=== PATIENT | male | born 1960 | race Caucasian/White ===

== ENCOUNTER → 2016-07-10 | Outpatient (REF) ==
--- NOTE | 2016-07-10 09:49 | DI ---
EXAM: Two views of the chest. History: Annual screening chest radiograph Comparison: Chest radiograph 08/24/2014 Findings: Heart size is normal. No focal consolidation. No appreciable pleural fluid and no pneum othorax. No acute osseous abnormalities. Two screws are again seen within the left scapula. Impression: No acute cardiopulmonary process. No change compared to the prior study.
== END ==
LOC: RAD 09:19
DX: Z02.89 Encounter for other administrative examinations (principal)

== ENCOUNTER 2017-11-19 09:00 | Outpatient (RCR) ==
--- NOTE | 2017-11-18 15:07 | RS.OPPTEV2 ---
Date of Note: 11/18/17 Visit #: 1 Date of Evaluation: 11/18/17 Payer Source: Insurance Treatment Diagnosis: Neck pain, Left UE radiating symptoms History of Condition/Mechanism of Injury:: Patient reports neck pain and left UE symptoms for approximately 4 weeks. Reports no specific injury or etiology. Prior Level of Function.....Patient was independent with: ADL's, Self Care, Work /Vocation, Caregiving, Ambulation/Mobility, Community Integration/Access Current Subjective/complaints:: Mr. Ruffin reports having symptoms of left neck and shoulder pain, with left UE tingling into the hand. States tingling goes into the 4th and 5th digits of the left hand. States he has also noticed less strength on the left UE. Reports having difficulty pulling his phone out of his pocket with the left hand. 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 States he is taking an anti- inflammatory and muscle relaxant, which have helped. States he has also used heat and ice. Heat seems to be relaxing and decreases his symptoms. Also states when he is hurting, he can get in his pool, and before long his symptoms are gone. Reports muscle tension and stress seems to make his symptoms worse. Reports an occasional headache. Medical History Medical History: Unremarkable Surgical History Comments:: Left shoulder traumatic dislocation and surgery seven years ago. Smoking Status: Never smoker Hx Home Medications: anti-inflammatory and muscle relaxant Patient's Goals: His goal is to get relief of Left sided pain and radicular symptoms. Pain Assessment - Pain Description Pain Location: left scapula and shoulder Current Pain Intensity: 3/10 Worst Pain Intensity: not quantified Functional Outcome Measure Neck Disability Index: 26 - G Codes & Severity Modifier G Codes & Modifier: Na Source of G Code score: NA Observation - Observation Posture: Forward Head, Rounded Shoulders, Scapula Asymmetry (right scapula higher than left), Increased Thoracic Kyphosis Handedness: Right - ROM Comments: Demonstrates full cervical AROM. Reports onset of tingling into the left UE with cervical extension. - Strength Cervical Extension: 5 Normal Cervical Flexion: 5 Normal Cervical Lateral Flexion: 5 Normal Comments: UE AROM is 5/5 throughout bilateral UE's. - Special Tests Thoracic Outlet Test: Negative Left, Negative Right Car Worker Strength Left Hand Car Worker Strength: 75 lbs. Right Hand Car Worker Strength: 135 lbs. Dynamometer Testing Position: 2nd Position Palpation Palpation Findings: Muscle Guarding Comments:: Moderate muscle tension in left upper traps. Right upper traps with minimal increase in muscle tone. Reports no tenderness upon palpation throughout the periscapular muscles, paraspinals, or suboccipital musculature. Sensation - Sensation Comments: Sensation intact to light touch and deep pressure throughout bilateral UE's. - Heat/Cryotherapy Treatment: Hot Pack (X 10 mins to cervical spine in supine, prior to cervical traction) - Traction Treatment Method: Mechanical, Intermittent, Cervical Patient Position: Supine Amount of Force Applied: 15 lbs. Hold Time: 35 sec Rest Time: 5 sec Duration of treatment: 10 mins Interventions - Exercise/Activities/Manual Therapy Exercises/Activities: Patient instructed in pec stretch (corner stretch) and cervical retraction. Manual Therapy: Na HOME EXERCISE PROGRAM: pec stretch (corner stretch) and cervical retraction. - Charges Timed Code Treatment Minutes: 10 mins (traction) Total Treatment Time: 45 mins Procedures billed for this date of service:: EVAL Low, mechanical traction EVALUATION COMPLEXITY LEVEL EVALUATION COMPLEXITY LEVEL: HISTORY: Low, EXAM OF BODY SYSTEMS: Low, CLINICAL PRESENTATION: Low, CLINICAL DECISION MAKING: Low Assessment Assessment: Patient presents to therapy with a diagnosis of Cervicalgia. He reports left shoulder pain, radiating symtpoms into the left UE and occasional headaches. He presents with a forward head posture, rounded shoulders, and thoracic kyphosis. He exihibits left hand freight car repairer of 75 lbs, compared to freight car repairer of 135 lbs. on the dominant hand. He also exhibits moderate muscle tone in the left upper traps. He presents to have good potential to benefit from postural exercises and cervical traction to resolve his symtpoms. Patient Education: Education of diagnosis, Body/Joint mechanics, Home Exercise Program, Activity Modification, Education of Plan of Care Rehab Potential: Good Short Term Goals Goal #1: Pt independent and compliant in HEP. Goal to be met by: 12/02/17 Goal #2: Left UE symptoms decreased to occasional. Goal to be met by: 12/02/17 Goal #3: Muscle tone of left upper traps decreased to minimal. Goal to be met by: 12/02/17 Flash Oven Operator Goals Goal #1: Pt knows HEP and to continue ex's to maintain functional level at D/C. 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 Goal to be met by: 12/28/17 Goal #3: Pt will report no deficit with left freight car repairer strength. Goal to be met by: 12/28/17 Goal #4: Pt to demonstrate good postural awareness. Goal to be met by: 12/28/17 Plan - Treatment to be Provided Procedures: Therapeutic Exercises, Therapeutic Activity, Manual Therapy, Patient Education Modalities: Ultrasound/Phonophoresis, Cryotherapy, Hot Packs, Mechanical Traction (cervical) - Treatment Plan Frequency: 3 X week Duration: 6 weeks ORDER # VISITS AND/OR THROUGH DATE: 12/28/17 - Treatment Code (1) Cervical radiculopathy Code(s): M54.12 - RADICULOPATHY, CERVICAL REGION Comments: M54.12 (2) Decreased freight car repairer strength of left hand Code(s): M62.81 - MUSCLE WEAKNESS (GENERALIZED) Comments: M62.81
--- NOTE | 2017-11-19 10:14 | RS.OPPTDN ---
Subjective Date of Note: 11/19/17 Visit #: 2 Date of Evaluation: 11/18/17 Payer Source: Insurance Treatment Diagnosis: Neck pain, Left UE radiating symptoms Current Subjective/complaints:: Reports minimal tingling and pain at this time , but the pain is present with immediately sitting up in the morning. Pain Assessment - Pain Description Pain Location: cervical/L UE Pain Description: Radiating, Aching Pain Description: minimal Other Comments regarding Pain:: pain varies ,dependent upon position of the neck or L UE - Heat/Cryotherapy Treatment: Hot Pack (20 mins. prior to ex . and traction) - Traction Treatment Method: Mechanical, Intermittent, Cervical Patient Position: Supine Amount of Force Applied: 16# Hold Time: 30 secs. Rest Time: 5 secs. Duration of treatment: 15 mins. Traction Treatment Comment: Tolerates well. Interventions - Exercise/Activities/Manual Therapy Exercises/Activities: 15 mins. total of standing corner stretch and cervical retraction ,modified to supine position for chin tucks/retraction and resting with both UE's /shoulders at 90 degrees abduction (cross or "T" position ). Total minutes of Exercise: 15 Manual Therapy: Na Total minutes of Manual Therapy: 0 HOME EXERCISE PROGRAM: pec stretch (corner stretch) and cervical retraction. - Charges Timed Code Treatment Minutes: 30 Total Treatment Time: 50 Procedures billed for this date of service:: hp,ex ,traction Assessment: Patient reports increaed radiating pain in the L UE with standing exercises,but less pain when placed in supine for stretches.He has good demo of exercises in standing or supine ,but recommended supine becauseof less compression of the C-spine.He tolerates traction well today. Patient Education: Education of diagnosis, Body/Joint mechanics, Home Exercise Program, Home Safety, Activity Modification, Education of Plan of Care Short Term Goals Goal #1: Pt independent and compliant in HEP. Goal to be met by: 12/02/17 Progress towards Goal:: Progressing Goal #2: Left UE symptoms decreased to occasional. Goal to be met by: 12/02/17 Goal #3: Muscle tone of left upper traps decreased to minimal. Goal to be met by: 12/02/17 Industry Analyst Goals Goal #1: Pt knows HEP and to continue ex's to maintain functional level at D/C. 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 Goal to be met by: 12/28/17 Goal #3: Pt will report no deficit with left brusher and shearer strength. Goal to be met by: 12/28/17 Goal #4: Pt to demonstrate good postural awareness. Goal to be met by: 12/28/17 Progress towards goal: Progressing Plan PLAN OF CARE EXPIRES ON:: 12/28/17 ORDER # VISITS AND/OR THROUGH DATE: 12/28/17 PLAN: Continue PT to eliminate cervical pain ,improve L UE /brusher and shearer strength .
--- NOTE | 2017-11-21 10:04 | RS.CXNS ---
Date of scheduled appointment: 11/21/17 Type: No Show Reason for Cancel/NS: Unknown
== END 2017-11-25 23:59 ==
PROVIDERS: ATTEND Orthopaedic Surgery Orthopaedic Surgery of the Spine
DX: M54.2 Cervicalgia (principal); M54.12 Radiculopathy, cervical region; M62.81 Muscle weakness (generalized)

== ENCOUNTER 2017-12-18 08:00 | Outpatient (RCR) ==
--- NOTE | 2017-12-08 09:03 | RS.OPPTDN ---
Subjective Date of Note: 12/08/17 Visit #: 3 Date of Evaluation: 11/18/17 Payer Source: Insurance Treatment Diagnosis: Neck pain, Left UE radiating symptoms Current Subjective/complaints:: Patient reports his pain has made it very difficult to drive ,gets some relief when resting on his back.He also has radiating pain into the UE's. Pain Assessment - Pain Description Pain Description: Radiating, Dull, Aching, Chronic Current Pain Intensity: 7/10 - Heat/Cryotherapy Treatment: Hot Pack (20 mins. prior to traction ) - Traction Treatment Method: Mechanical, Intermittent, Cervical Patient Position: Supine Amount of Force Applied: 15-16 # Hold Time: 30 secs. Rest Time: 5 secs. Duration of treatment: 15 mins. Traction Treatment Comment: Tolerates well. Interventions - Exercise/Activities/Manual Therapy Exercises/Activities: HEP review while on traction ,he is doing them at home without difficulty in supine.He reports increased pain if standing and attempting stretches. Total minutes of Exercise: 0 Manual Therapy: Na Total minutes of Manual Therapy: 0 HOME EXERCISE PROGRAM: pec stretch (corner stretch) and cervical retraction. GIVEN HOME TRACTION UNIT FOR TRIAL PERIOD .INSERVICE DONE FOR PROPER USE. - Charges Timed Code Treatment Minutes: 25 Total Treatment Time: 45 Procedures billed for this date of service:: hp,traction ,ther. act. Assessment: Patient reports relief from traction .He is motivated to improve , is comliant to HEP ,uses ice and heat for relief.He is very guarded today with cervical motion,presents with forwrd head posture. Patient Education: Education of diagnosis, Body/Joint mechanics, Home Exercise Program, Home Safety, Activity Modification, Education of Plan of Care Patient demonstrates compliance with HEP?: Yes Short Term Goals Goal #1: Pt independent and compliant in HEP. Goal to be met by: 12/02/17 Progress towards Goal:: Progressing Goal #2: Left UE symptoms decreased to occasional. Goal to be met by: 12/02/17 Goal #3: Muscle tone of left upper traps decreased to minimal. Goal to be met by: 12/02/17 Fruit Or Nut Farmworker Goals Goal #1: Pt knows HEP and to continue ex's to maintain functional level at D/C. 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 Goal to be met by: 12/28/17 Progress towards goal: No Change Goal #3: Pt will report no deficit with left latin teacher strength. Goal to be met by: 12/28/17 Goal #4: Pt to demonstrate good postural awareness. Goal to be met by: 12/28/17 Progress towards goal: Progressing Plan PLAN OF CARE EXPIRES ON:: 12/28/17 ORDER # VISITS AND/OR THROUGH DATE: 12/28/17 PLAN: Continue PT to reduce/eliminate cervical pain and radiculopathy.
--- NOTE | 2017-12-11 10:13 | RS.OPPTDN ---
Subjective Date of Note: 12/11/17 Visit #: 4 Date of Evaluation: 11/18/17 Payer Source: Insurance Treatment Diagnosis: Neck pain, Left UE radiating symptoms Current Subjective/complaints:: Patient reports using home traction unit daily , feels it is helping. Pain Assessment - Pain Description Pain Location: cervical Pain Description: Radiating, Dull, Aching Pain Description: still has numbness ni the UE's when driving Current Pain Intensity: not rated Worst Pain Intensity: 4-5 [address] to clinic Other Comments regarding Pain:: lessens as the day progresses during activities ,elevates at night when resting - Heat/Cryotherapy Treatment: Hot Pack (20 mins. prior to traction) - Traction Treatment Method: Mechanical, Intermittent, Cervical Patient Position: Supine Amount of Force Applied: 16-17# Hold Time: 30 secs. Rest Time: 5 secs. Duration of treatment: 20 mins. Traction Treatment Comment: Tolerates well. Interventions - Exercise/Activities/Manual Therapy Exercises/Activities: HEP review while on traction ,he is doing them at home without difficulty in supine. Total minutes of Exercise: 0 Manual Therapy: Na Total minutes of Manual Therapy: 0 HOME EXERCISE PROGRAM: pec stretch (corner stretch) and cervical retraction. GIVEN HOME TRACTION UNIT FOR TRIAL PERIOD .INSERVICE DONE FOR PROPER USE. - Charges Timed Code Treatment Minutes: 20 Total Treatment Time: 40 Procedures billed for this date of service:: hp,traction Assessment: Patient feels the traction is helping ,is using the home unit daily, reports less intensity and less duration of cervical pain.He is doing the HEP as recommended also. Patient Education: Body/Joint mechanics, Home Exercise Program, Education of Plan of Care Patient demonstrates compliance with HEP?: Yes Short Term Goals Goal #1: Pt independent and compliant in HEP. Goal to be met by: 12/02/17 Progress towards Goal:: Partially Met Goal #2: Left UE symptoms decreased to occasional. Goal to be met by: 12/02/17 Progress towards Goal:: Progressing Goal #3: Muscle tone of left upper traps decreased to minimal. Goal to be met by: 12/02/17 Progress towards Goal:: Progressing Office Support Goals Goal #1: Pt knows HEP and to continue ex's to maintain functional level at D/C. 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 Goal to be met by: 12/28/17 Progress towards goal: No Change Goal #3: Pt will report no deficit with left factory focus technician strength. Goal to be met by: 12/28/17 Goal #4: Pt to demonstrate good postural awareness. Goal to be met by: 12/28/17 Progress towards goal: Progressing Plan PLAN OF CARE EXPIRES ON:: 12/28/17 ORDER # VISITS AND/OR THROUGH DATE: 12/28/17 PLAN: Continue PT to eliminate /reduce cevical pain .
--- NOTE | 2017-12-12 13:19 | RS.OPPTDN ---
Subjective Date of Note: 12/12/17 Visit #: 5 Date of Evaluation: 11/18/17 Payer Source: Insurance Treatment Diagnosis: Neck pain, Left UE radiating symptoms Current Subjective/complaints:: Patient driving still seems to cause the most pain,gets numbness and tingling in the L arm. Pain Assessment - Pain Description Pain Location: neck and L UE Pain Description: Radiating, Dull, Aching Pain Description: radiates into the L arm/hand ,increases with driving position - Heat/Cryotherapy Treatment: Hot Pack (20 mins. prior to traction) - Traction Treatment Method: Mechanical, Intermittent, Cervical Patient Position: Supine Amount of Force Applied: 17 - 18# Hold Time: 30 secs. Rest Time: 5 secs. Duration of treatment: 20 mins. Traction Treatment Comment: Tolerates well Interventions - Exercise/Activities/Manual Therapy Exercises/Activities: 20 mins. total ,including corner stretches,cervical retraction with resistance,postural awareness education. Total minutes of Exercise: 20 Manual Therapy: Na Total minutes of Manual Therapy: 0 HOME EXERCISE PROGRAM: pec stretch (corner stretch) and cervical retraction. GIVEN HOME TRACTION UNIT FOR TRIAL PERIOD .INSERVICE DONE FOR PROPER USE. - Charges Timed Code Treatment Minutes: 40 Total Treatment Time: 60 Procedures billed for this date of service:: hp,traction,ther. act. Assessment: Patient reports temporary relief from traction ,also feels better with activity ,but the L UE radiculopathy is still present with driving or when first waking up in the mornng. Patient Education: Education of diagnosis, Body/Joint mechanics, Home Exercise Program, Home Safety, Activity Modification, Education of Plan of Care Patient demonstrates compliance with HEP?: Yes Short Term Goals Goal #1: Pt independent and compliant in HEP. Goal to be met by: 12/02/17 Progress towards Goal:: Partially Met Goal #2: Left UE symptoms decreased to occasional. Goal to be met by: 12/02/17 Progress towards Goal:: No Change Goal #3: Muscle tone of left upper traps decreased to minimal. Goal to be met by: 12/02/17 Progress towards Goal:: Progressing Corporate Risk Analyst Goals Goal #1: Pt knows HEP and to continue ex's to maintain functional level at D/C. 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 Goal to be met by: 12/28/17 Progress towards goal: No Change Goal #3: Pt will report no deficit with left equipment cleaner strength. Goal to be met by: 12/28/17 (65# on L,125# on R) Progress towards goal: No Change Goal #4: Pt to demonstrate good postural awareness. Goal to be met by: 12/28/17 Progress towards goal: Progressing Plan PLAN OF CARE EXPIRES ON:: 12/28/17 ORDER # VISITS AND/OR THROUGH DATE: 12/28/17 PLAN: Continue PT to reduce/eliminate cervical and L UE pain.
--- NOTE | 2017-12-16 08:48 | RS.OPPTDN ---
Subjective Date of Note: 12/16/17 Visit #: 6 Date of Evaluation: 11/18/17 Payer Source: Insurance Treatment Diagnosis: Neck pain, Left UE radiating symptoms Current Subjective/complaints:: Patient reports less neck pain this morning,but has the numbness into the L UE and L hand. Pain Assessment - Pain Description Pain Description: numbnes in the lUE and hand Current Pain Intensity: 0 at rest - Heat/Cryotherapy Treatment: Hot Pack (20 mis. prior to traction) - Traction Treatment Method: Mechanical, Intermittent, Cervical Patient Position: Supine Amount of Force Applied: 20 # Hold Time: 30 secs. Rest Time: 5 secs. Duration of treatment: 20 mins. Traction Treatment Comment: Tolerates well.Initially had minimal discomfort when traction released,but dissipated as treatment progressed. Interventions - Exercise/Activities/Manual Therapy Exercises/Activities: N/A Total minutes of Exercise: 0 Manual Therapy: Na Total minutes of Manual Therapy: 0 HOME EXERCISE PROGRAM: pec stretch (corner stretch) and cervical retraction. GIVEN HOME TRACTION UNIT FOR TRIAL PERIOD .INSERVICE DONE FOR PROPER USE. - Charges Timed Code Treatment Minutes: 20 Total Treatment Time: 40 Procedures billed for this date of service:: hp,traction Assessment: Patient has less intense pain today,also reports the pain intemsity when driving is slightly better the past couple of days.He has improved postural awareness,good understanding of HEP. Patient Education: Education of diagnosis, Body/Joint mechanics, Home Exercise Program, Home Safety, Activity Modification, Education of Plan of Care Patient demonstrates compliance with HEP?: Yes Short Term Goals Goal #1: Pt independent and compliant in HEP. Goal to be met by: 12/02/17 Progress towards Goal:: Met Goal #2: Left UE symptoms decreased to occasional. Goal to be met by: 12/02/17 Progress towards Goal:: Progressing Goal #3: Muscle tone of left upper traps decreased to minimal. Goal to be met by: 12/02/17 Progress towards Goal:: Progressing Quality Systems Technician Goals Goal #1: Pt knows HEP and to continue ex's to maintain functional level at D/C. 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 Goal to be met by: 12/28/17 Progress towards goal: Progressing Goal #3: Pt will report no deficit with left oncology rep strength. Goal to be met by: 12/28/17 (65# on L,125# on R) Progress towards goal: No Change Goal #4: Pt to demonstrate good postural awareness. Goal to be met by: 12/28/17 Progress towards goal: Progressing Plan PLAN OF CARE EXPIRES ON:: 12/28/17 ORDER # VISITS AND/OR THROUGH DATE: 12/28/17 PLAN: Continue PT to reduce or eliminate cervical pain ,increase L oncology rep strength.
--- NOTE | 2017-12-18 09:25 | RS.OPPTDN ---
Subjective Date of Note: 12/18/17 Visit #: 7 Date of Evaluation: 11/18/17 Payer Source: Insurance Treatment Diagnosis: Neck pain, Left UE radiating symptoms Current Subjective/complaints:: Patient reports elevated pain today.He does present with increased forward head posture. Pain Assessment - Pain Description Pain Location: cervical and L UE Pain Description: Radiating, Aching, Chronic Current Pain Intensity: 6-7 - Heat/Cryotherapy Treatment: Hot Pack (20 mins. prior to traction) - Traction Treatment Method: Mechanical, Intermittent, Cervical Patient Position: Supine Amount of Force Applied: 18 # Hold Time: 30 secs. Rest Time: 5 secs. Duration of treatment: 20 mins. Interventions - Exercise/Activities/Manual Therapy Exercises/Activities: Patient does corner stretches today independently and properly before traction. Total minutes of Exercise: 0 Manual Therapy: Na Total minutes of Manual Therapy: 0 HOME EXERCISE PROGRAM: pec stretch (corner stretch) and cervical retraction. GIVEN HOME TRACTION UNIT FOR TRIAL PERIOD .INSERVICE DONE FOR PROPER USE. - Charges Timed Code Treatment Minutes: 20 Total Treatment Time: 40 Procedures billed for this date of service:: hp,traction Assessment: Patient tolerates traction well,continues to report no pain when resting on bed or immediately after traction ,but the pain returns the longer he is in upright position.He does have better posture after traction .He is motivated to improve ,plans to see a in [facility]. for evaluation. Patient demonstrates compliance with HEP?: Yes Short Term Goals Goal #1: Pt independent and compliant in HEP. Goal to be met by: 12/02/17 Progress towards Goal:: Met Goal #2: Left UE symptoms decreased to occasional. Goal to be met by: 12/02/17 (increasd today) Progress towards Goal:: Regressing Goal #3: Muscle tone of left upper traps decreased to minimal. Goal to be met by: 12/02/17 (N/A today) Shelter Goals Goal #1: Pt knows HEP and to continue ex's to maintain functional level at D/C. 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 Goal to be met by: 12/28/17 Progress towards goal: No Change Goal #3: Pt will report no deficit with left act english tutor strength. Goal to be met by: 12/28/17 (65# on L,125# on R) Progress towards goal: No Change Goal #4: Pt to demonstrate good postural awareness. Goal to be met by: 12/28/17 Progress towards goal: Progressing Plan PLAN OF CARE EXPIRES ON:: 12/28/17 ORDER # VISITS AND/OR THROUGH DATE: 12/28/17 PLAN: Continue PT to redice/eliminate cervical and L UE pain.
--- NOTE | 2017-12-22 09:00 | RS.CXNS ---
Date of scheduled appointment: 12/22/17 Type: No Show Reason for Cancel/NS: Unknown
== END 2017-12-26 23:59 ==
PROVIDERS: ATTEND Orthopaedic Surgery Orthopaedic Surgery of the Spine
DX: M54.2 Cervicalgia (principal)

== ENCOUNTER 2018-06-16 13:42 | Emergency (ER) | payer OTHER ==
[2018-06-16] MEDS ORDERED: SODIUM CHLORIDE 1,000 ML IV STA (13:53)
[2018-06-16 13:55] VITALS: BMI 25.3
--- NOTE | 2018-06-16 13:58 | ED.PDOC ---
General ED Provider: Dr. TRAVIS RAMAN Chief Complaint: Extremity Pain/Injury Stated Complaint: Crushing injury Rt Thigh. 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 States was able to get out from underthe device, which probably weighs aprox 1 ton. Drove himself to hospidal. Note to have an abrasion on the dorsal aspect of his Rt thigh of thigh with swelling. Right thigh measures 51.5cm. Left thigh 49cm Time Seen by Physician: 13:40 Mode of Arrival: Walk-In Information Source: Patient Exam Limitations: No limitations Primary Care Provider: GEE ARRINGTON Nursing and Triage Documentation Reviewed and Agree: Yes Does patient meet sepsis criteria?: No System Inflammatory Response Syndrome: Not Applicable Sepsis Protocol: For patient's 13 years and over: Temp is 96.8 and below OR 101 and greater Pulse >90 BPM Resp >20/minute Acutely Altered Mental Status Are patient's symptoms suggestive of a new infection, such as: -Pneumonia -Skin, Soft Tissue -Endocarditis -UTI -Bone, Joint Infection -Implantable Device -Acute Abdominal Infection -Wound Infection -Meningitis -Blood Stream Catheter Infection -Unknown Trauma/Injury Complaint Exam - Trauma Complaint/Exam Location of Pain or Injury: Reports: LLE Mechanism of Injury: Reports: Crush Injury Onset/Duration: 1 hr Symptoms Are: Still present Timing of Treatment: Immediate Initial Severity: Moderate Current Severity: Moderate Character: Reports: Pressure, Sharp Aggravating: Reports: Movement, Weight-bearing Alleviating: Reports: Rest, Elevation Associated Signs and Symptoms: Reports: Bruising, Swelling Related History: Denies: Similar episode Penetrating Injury Risk Factors: Reports: None Trauma Findings: Absent: Abdominal distention, Limited ROM, Uncooperative Skin Findings: Present: Abrasion, Contusion Differential Diagnoses: Abrasion, Contusions Review of Systems - Review Of Systems Constitutional: Reports: No symptoms Eyes: Reports: No symptoms Ears, Nose, Mouth, Throat: Reports: No symptoms Respiratory: Reports: No symptoms Cardiac: Reports: No symptoms GI: Reports: No symptoms : Reports: No symptoms Musculoskeletal: Reports: No symptoms Skin: Reports: No symptoms Neurological: Reports: No symptoms Endocrine: Reports: No symptoms Hematologic/Lymphatic: Reports: No symptoms All Other Systems: Reviewed and Negative Past Medical History - Past Medical History Previously Healthy: Yes Endocrine: Reports: None Cardiovascular: Reports: None Respiratory: Reports: None Hematological: Reports: None Gastrointestinal: Reports: None Genitourinary: Reports: None Neuro/Psych: Reports: None Musculoskeletal: Reports: None Cancer: Reports: None - Surgical History General Surgical History: Reports: None - Family History Family History: Reports: None - Social History Hx Substance Use: No Alcohol Screening: None - Immunizations Tetanus Shot up to Date: No (Givent today) Influenza Vaccine within 12 Months: No Pneumococcal Vaccine up to Date: No Physical Exam - Physical Exam Appearance: Well-appearing, No pain distress, Well-nourished Ill-appearing: Moderate Pain Distress: Moderate Eyes: SHAINA, EOMI, Conjunctiva clear ENT: Ears normal, Nose normal, Oropharynx normal Respiratory: Airway patent, Breath sounds clear, Breath sounds equal, Respirations nonlabored Cardiovascular: RRR, Pulses normal, No rub, No murmur GI/: Soft, Nontender, No masses, Bowel sounds normal, No Organomegaly Musculoskeletal: Normal strength, ROM intact, No edema, No calf tenderness, Limited ROM (RT thigh swelling and tenderness.abrasion dorsal thigh) Skin: Warm, Dry, Normal color Neurological: Sensation intact, Motor intact, Reflexes intact, Cranial nerves intact, Alert, Oriented Psychiatric: Affect appropriate, Mood appropriate Re-Evaluation - Re-Evaluation Time of Re-Evaluation: 17:00 Status: Improved Vital Signs Stable: Yes Appearance: NAD Lungs: Clear Skin: Warm and Dry Neuro: Alert and Oriented X3 CV: RRR Physician Notification - Case Discussed Physician Notified: Dr Kerr -ortho charge account identification clerk/option to monitor at home /patient / prefer hosp Time of Notification: 17:15 (discussed case/) Critical Care Note - Critical Care Note Total Time (mins): 30 Course - Course Hematology/Chemistry: 06/16/18 14:00 06/16/18 14:17 Orders, Labs, Meds: Lab Review 06/16/18 06/16/18 14:00 14:17 WBC 7.54 RBC 4.55 L Hgb 14.8 Hct 43.2 MCV 94.9 H MCH 32.5 H MCHC 34.3 RDW Coeff of [place] 12.6 Plt Count 203 Immature Gran % (Auto) 0.3 Neut % (Auto) 61.5 Lymph % (Auto) 29.2 [place] % (Auto) 8.2 Eos % (Auto) 0.4 Baso % (Auto) 0.4 Immature Gran # (Auto) 0.0 Neut # (Auto) 4.6 Lymph # (Auto) 2.2 [place] # (Auto) 0.6 Eos # (Auto) 0.0 Baso # (Auto) 0.0 Sodium 139.0 Potassium 4.09 Chloride 101.0 Carbon Dioxide 29.2 Anion Gap 12.89 BUN 16.5 Creatinine 0.90 Estimated GFR (MDRD) 87.00 BUN/Creatinine Ratio 18.33 Glucose 189.9 H Calcium 8.86 Total Bilirubin 0.89 AST 32.0 ALT 31.8 Alkaline Phosphatase 52.2 Total Creatine Kinase 129.4 CK-MB (CK-2) 1.400 CK-MB (CK-2) % 1.0800 Total Protein 7.28 Albumin 4.28 Globulin 3.00 Albumin/Globulin Ratio 1.42 Orders Category Date Time Status IV [ED IV/MEDIPORT/POWERPORT] .ONCE EMERGENCY 06/16/18 13:52 Active CBC W/ AUTO DIFF Stat LAB 06/16/18 14:00 Completed CMP [COMPREHENSIVE METABOLIC PANEL] Stat LAB 06/16/18 14:17 Completed CPK [CREATINE KINASE] Stat LAB 06/16/18 14:17 Completed 0.9 % Sodium Chloride [Saline Flush] MEDS 06/16/18 13:53 Active 1 syr IVF PRN PRN Diphth,Pertuss(Acell),Tet Vac [Boostrix] MEDS 06/16/18 17:21 Discontinued 0.5 ml IM .ONCE ONE Hydromorphone HCl [Dilaudid 1 mg/ml Syringe] MEDS 06/16/18 14:10 Discontinued 1 mg IVP ONCE STA Ondansetron HCl/Pf [Zofran 4 mg/2 ml] MEDS 06/16/18 14:10 Discontinued 4 mg IVP ONCE STA Sodium Chloride 0.9% [Sodium Chloride] 1,000 ml MEDS 06/16/18 13:53 Active IV 125 mls/hr CT FEMUR RIGHT WITHOUT CONTRAS Stat RADS 06/16/18 13:53 Completed Medications Generic Name Dose Route Start Last Admin Trade Name Freq PRN Reason Stop Dose Admin Sodium Chloride 1,000 mls @ 125 mls/hr 06/16/18 13:53 06/16/18 14:17 Sodium Chloride IV 06/16/18 21:52 125 mls/hr .Q8H STA Administration Sodium Chloride 1 syr 06/16/18 13:53 06/16/18 14:17 Saline Flush IVF 1 syr PRN PRN Administration To flush IV Discontinued Medications Generic Name Dose Route Start Last Admin Trade Name Ashq PRN Reason Stop Dose Admin Diphtheria/Pertussis/Tetanus Vacc 0.5 ml 06/16/18 17:21 06/16/18 17:29 Boostrix IM 06/16/18 17:22 0.5 ml .ONCE ONE Administration Hydromorphone HCl 1 mg 06/16/18 14:10 06/16/18 14:17 Dilaudid 1 Mg/Ml Syringe IVP 06/16/18 14:11 1 mg ONCE STA Administration Ondansetron HCl 4 mg 06/16/18 14:10 06/16/18 14:17 Zofran 4 Mg/2 Ml IVP 06/16/18 14:11 4 mg ONCE STA Administration Vital Signs: Temp Pulse Resp BP Pulse Ox 06/16/18 17:06 98.0 F 85 101/64 96 06/16/18 13:47 97.3 F L 90 20 144/85 H 98 Departure - Departure Time of Disposition: 17:30 Disposition: TSF SHORT-TRM HOSP Discharge Problem: Crushing injury of right thigh, initial encounter Condition: Good Pt referred to PMD for follow-up: Yes (prn) IPMP verified?: No Additional Instructions: Keep leg elevated / No wt bearing ambulation Transfer [place] for Ortho consult and monitor for compartment syndrome Discussed with patient and Allergies/Adverse Reactions: Allergies No Known Allergies Allergy (Unverified 06/16/18 13:55) Home Medications: Ambulatory Orders 1 [No Reported Medications] 06/16/18 Disposition Discussed With: Patient, Family
[2018-06-16] MEDS ORDERED: DILAUDID 1 MG/ML SYRINGE IVP STA (14:10)
[2018-06-16] MEDS ORDERED: ZOFRAN 4 MG/2 ML IVP STA (14:10)
--- NOTE | 2018-06-16 14:46 | CT ---
EXAM: CT of the right femur without contrast History: Right thigh trauma. Technique: Multiplanar CT images through the right femur were obtained without the administration of IV contrast. Findings: No bladder wall thickening. Prostate is not enlarged. No pelvic fluid. No perirectal in flammation. No acute fracture or dislocation. There is subcutaneous edema and intramuscular edema o f the anterior lower left thigh with edema and probable hemorrhage within the patellar tendon. Impression: 1. No acute osseous abnormality. 2. Subcutaneous edema and intramuscular edema of the anterior lower left thigh. 3. Edema and probable hemorrhage within the patellar tendon.
[2018-06-16 17:07] VITALS: BP 101/64; TEMP 98
[2018-06-16] MEDS ORDERED: BOOSTRIX IM ONE (17:21)
== END 2018-06-16 19:07 | disposition short-term general hospital (02) ==
LOC: ED 13:42
DX: S77.11XA Crushing injury of right thigh, initial encounter (principal); S76.101A Unspecified injury of right quadriceps muscle, fascia and tendon, initial encounter; W20.8XXA Other cause of strike by thrown, projected or falling object, initial encounter; Y92.79 Other farm location as the place of occurrence of the external cause
CPT/HCPCS: 36415; 80053; 82550; 82553; 85025; 90471; 90715; 96361; 96374; 96375; 99285